=== PATIENT | female | born 1975 | race Caucasian/White ===

== ENCOUNTER 2017-01-07 05:36 | Emergency (ER) | payer SELFPAY ==
[~2017-01-07] VITALS: Ht 167.6 cm; Wt 63.5 kg
[2017-01-07 05:36] VITALS: BP 121/61; PULSE 97; RESP 12; TEMP 99.2; O2SAT 100
--- NOTE | 2017-01-07 05:36 | NUR ---
Pt brought in by [facility] for medical clearance to book. Pt has anemia. Will continue to monitor. No other injuires or mentioned/noted. No distress noted. AAOx4.
--- NOTE | 2017-01-07 05:36 | NUR ---
Placed in hallway.
--- NOTE | 2017-01-07 05:36 | NUR ---
ER Dr. Melendez at bedside examining patient.
[2017-01-07 05:53] VITALS: BP 121/61; PULSE 97; RESP 12; TEMP 99.2; O2SAT 100
--- NOTE | 2017-01-07 05:53 | NUR ---
Patient given written and verbal discharge instructions and verbalizes understanding. ER MD discussed with patient the results and treatment provided. Patient in stable condition. ID arm band removed. Rx of Ferrous Sulfate given. Patient educated on pain management and to follow up with PMD. Pain Scale 0/10. Opportunity for questions provided and answered.
== END 2017-01-07 05:53 ==
LOC: SED 05:36
DX: Z02.89 Encounter for other administrative examinations (principal); Z86.2 Personal history of diseases of the blood and blood-forming organs and certain disorders involving the immune mechanism
CPT/HCPCS: 99283